=== PATIENT | female | born 1995 | race Caucasian/White ===

== ENCOUNTER 2017-09-06 17:57 | Emergency (ER) | payer OTHER ==
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
[2017-09-06 19:29] VITALS: BP 125/72
[2017-09-06] MEDS ORDERED: ACETAMINOPHEN 325 MG TAB PO ONE (19:29)
== END 2017-09-06 19:48 | disposition home or self-care (01) ==
PROC: 0HQ0XZZ Repair Scalp Skin, External Approach (ICD-10-PCS; principal; 2017-09-06)
DX: S01.01XA Laceration without foreign body of scalp, initial encounter (principal); V49.49XA Driver injured in collision with other motor vehicles in traffic accident, initial encounter; Y92.410 Unspecified street and highway as the place of occurrence of the external cause; Y99.8 Other external cause status; Y93.89 Activity, other specified